=== PATIENT | female | born 1960 | race Caucasian/White ===

== ENCOUNTER 2020-10-13 14:54 | Emergency (ER) | payer OTHER, SELFPAY ==
[2020-10-13] VITALS (11 sets, daily range): BP systolic 129–182; BP diastolic 72–90; PULSE 80–98; RESP 14–24; TEMP 36.3; O2SAT 91–100
--- NOTE | ~2020-10-13 | XR_ITS ---
EXAMINATION: XR chest 2V DATE: 10/13/2020 15:28 INDICATION: Chest tightness TECHNIQUE: PA and lateral views of the chest are obtained. COMPARISON: 09/16/2018 FINDINGS: The lungs are free of acute opacities. There is no pleural effusion or pneumothorax. The ca rdiomediastinal silhouette is normal. There is moderate thoracic spondylosis. Calcified loose bodies are noted in right shoulder. IMPRESSION: 1. No acute cardiopulmonary abnormality. Reviewed, dictated and finalized at location A. [employer]
--- NOTE | 2020-10-13 14:55 | ECG_ITS ---
Measurements Intervals [place] Rate: 83 P: 6 NM: 131 QRS: 23 QRSD: 86 T: 30 QT: 373 QTc: 439 Interpretive Statements SINUS RHYTHM LOW QRS VOLTAGE IN PRECORDIAL LEADS BASELINE WANDER- I, II, V3 BORDERLINE ECG Electronically Signed On 10-13-2020 15:44:45 [employer] by Jl Lechuga D.O.
[2020-10-13] MEDS: ASPIRIN 81 MG CHEWABLE TABLET 324 MG PO (15:06)
--- NOTE | 2020-10-13 15:18 | ED.CHESTPAIN ---
HPI - Chest Pain General Chief Complaint: Chest Pain <Ramone Hester DO - Last Filed: 10/13/20 16:53> Stated Complaint: chest pain <Ramone Hester DO - Last Filed: 10/13/20 16:53> Time Seen by Provider: 10/13/20 15:03 <Ramone Hester DO - Last Filed: 10/13/20 16:53> Source: RN notes reviewed <Ramone Hester DO - Last Filed: 10/13/20 16:53> History of Present Illness HPI narrative: Patient presents to emergency department from home for midsternal chest pain. Patient states pain began approximately noon today pain is located midsternal chest. Patient states occasional radiation into the left neck and shoulder region states that pain feels like a pressure she denies any fevers or chills shortness of breath abdominal pain nausea vomiting or any other symptoms she denies any previous cardiac history states nothing makes the pain better or worse <Ramone Hester DO - Last Filed: 10/13/20 16:53> Related Data Home Medications: Home Medications Medication Instructions Recorded Confirmed baclofen 10 mg PO DAILY PRN 10/13/20 10/13/20 duloxetine 60 mg PO BID 10/13/20 empagliflozin [Jardiance] 25 mg PO DAILY 10/13/20 10/13/20 gabapentin 100 mg PO DAILY PRN 10/13/20 losartan 100 mg PO DAILY 10/13/20 metformin 500 mg PO BID 10/13/20 <Ramone Hester DO - Last Filed: 10/13/20 16:53> Allergies/Adverse Reactions: Allergies Allergy/AdvReac Type Severity Reaction Status Date / Time No Known Allergies Allergy Verified 10/13/20 14:55 <Ramone Hester DO - Last Filed: 10/13/20 16:53> Review of Systems Review of Systems: Narrative: Gen.: Denies fevers or chills ENT: Denies congestion Respiratory: Denies shortness of breath or cough CV: See HPI GI: Denies abdominal pain nausea, emesis or diarrhea Musculoskeletal: Denies back pain or muscle pain Neuro: Denies numbness, tingling, weakness or focal weakness Skin: Denies rash Except as documented, all other systems reviewed and negative <Ramone Hester DO - Last Filed: 10/13/20 16:53> [facility] Past Medical History Medical History: Medical History (Updated 10/13/20 @ 18:15 by Neo Patel MD) Diabetes mellitus Hypertension <Ramone Hester DO - Last Filed: 10/13/20 16:53> Social History Social History: Social History (Updated 10/13/20 @ 16:52 by Ramone Hester DO) Smoking status: Never smoker <Ramone Hester DO - Last Filed: 10/13/20 16:53> Exam Narrative: Exam Narrative: APPEARANCE: No acute distress, nontoxic, resting in bed EYES: EOMI HEENT: Normocephalic, atraumatic, OMM RESPIRATORY: No respiratory distress Clear to auscultation bilaterally with no rhonchi wheezing or rales. CARDIOVASCULAR: Regular rate and rhythm without murmurs rubs or gallops. ABDOMINAL: Soft, nontender, nondistended, no rebound or guarding MUSCULOSKELETAl: Moves all extremities. No clubbing, cyanosis or edema. NEURO: Awake and alert. Following commands, speech normal, no focal deficits SKIN:: Warm, dry. No rashes lesions or abrasions PSYCHIATRIC: Normal affect/mood, <Ramone Hester DO - Last Filed: 10/13/20 16:53> Course Course Emergency Course: Patient was signed out pending laboratory studies patient had a troponin that was negative. Patient has a heart score of 3 <Neo Patel MD - Last Filed: 10/13/20 18:16> Vital Signs Vital signs: Vital Signs Pulse Rate 89 10/13/20 15:00 Respiratory Rate 19 10/13/20 15:00 Temperature 36.3 C L 10/13/20 15:02 Pulse Rate 96 10/13/20 16:45 Respiratory Rate 24 H 10/13/20 16:45 Blood Pressure 129/76 10/13/20 16:45 Pulse Oximetry 91 10/13/20 16:45 <Ramone Hester DO - Last Filed: 10/13/20 16:53> Vital Signs Pulse Rate 89 10/13/20 15:00 Respiratory Rate 19 10/13/20 15:00 Temperature 36.3 C L 10/13/20 15:02 Pulse Rate 96 10/13/20 16:45 Respiratory Rate 24 H 0
[2020-10-13 15:47] LABS: Basophils Absolute Auto 0.1 K/mm3 (0.0-0.1); Basophils Percent Auto 0.7 % (0.2-1.2); Eosinophils Absolute Auto 0.1 K/mm3 (0-0.3); Eosinophils Percent Auto 1.4 % (0-4.4); Hemoglobin 15.5 g/dL (12.0-15.0); Immature Granulocyte Absolute 0.01 K/mm3 (0.00-0.031); Immature Granulocyte Percent A 0.1 % (0-0.5); Lymphocytes Absolute Auto 2.29 K/mm3 (0.9-3.2); Lymphocytes Percent Auto 28.6 % (18.3-44.2); Mean Corpuscular HGB Conc 34.4 g/dl (32-36); Mean Corpuscular Hemoglobin 29.4 pg (26-34); Mean Corpuscular Volume 85.2 fl (80-100); Mean Platelet Volume 8.9 fl (7.4-10.4); Monocytes Absolute Auto 0.7 K/mm3 (0.1-0.6); Monocytes Percent Auto 8.5 % (2.6-8.5); Neutrophils Absolute Auto 4.9 K/mm3 (1.3-6.7); Neutrophils Percent Auto 60.7 % (45.5-73.1); Platelet Count Result 332 k/mm3 (150-375); Red Blood Count 5.28 M/mm3 (4.2-5.4); Red Cell Distribution Width 12.8 % (11.5-14.5)
[2020-10-13 15:56] LABS: INR 0.9; Prothrombin Time 12.4 Seconds (11.1-14.7)
[2020-10-13 15:57] LABS: Partial Thromboplastin Time 24.7 SECONDS (22.3-36.8)
[2020-10-13 15:59] LABS: D Dimer 0.43 ug/mL (<0.48)
[2020-10-13 17:16] LABS: Alanine Aminotransferase 22 U/L (4-35); Albumin Level 4.4 g/dL (3.5-5.1); Alkaline Phosphatase 67 U/L (38-126); Anion Gap 8 mmol/L (8-16); Aspartate Amino Transferase 27 U/L (14-36); Bilirubin,Total 0.6 mg/dL (0.2-1.3); Blood Urea Nitrogen 20 mg/dL (7-17); Calcium 9.5 mg/dL (8.4-10.2); Carbon Dioxide 26 mmol/L (22-30); Chloride 105 mmol/L (98-107); Estimated CRCL calculation 104 ml/min; Estimated Glomerular Filt Rate > 60; Glucose 141 mg/dL (65-105); Lipase 95 U/L (23-300); Sodium 139 mmol/L (137-145)
[2020-10-13 17:22] LABS: Troponin I < 0.012 ng/mL (0.000-0.034)
[2020-10-13 18:40] LABS: Troponin I < 0.012 ng/mL (0.000-0.034)
== END 2020-10-13 18:42 | disposition home or self-care (01) ==
PROVIDERS: Emergency Provider Emergency Medicine; PCP Internal Medicine
DX: R07.89 Other chest pain (principal); E11.9 Type 2 diabetes mellitus without complications; I10 Essential (primary) hypertension; Z79.84 Long term (current) use of oral hypoglycemic drugs
CPT/HCPCS: 36415; 71046; 80048; 80076; 83690; 84484; 85025; 85380; 85610; 85730; 93005; 99284; A9270

== ENCOUNTER 2023-01-08 15:45 | Outpatient (RCR) | payer OTHER, SELFPAY ==
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
--- NOTE | 2022-12-21 08:59 | PTOPPROG ---
Assessment and note entered by Tariq Mei, PT Evaluation Information Assessment Status Progress Diagnosis TIA, CVA Subjective Information Patient reports she still feels like her back is weak and she is wanting to get riding on her tricycle that her mother got her and walking with her daughter to work on being more active. Feeling like she is having balance issues that have not improved Assessment PT Clinical Summary Echo is a 62 year old female coming into the clinic with a diagnosis of TIA and CVA. She was evaluated on 11/22/22 and attended 5 visits. She has met her walking and ankle strength goal, but new goals written for balance and a progression of her walking to help her be more active. Will continue to work with patient on balance and endurance if okay with doctor. Plan of Care Interventions Electrical Stimulation,Gait Training,Hot Pack/Cold Pack,Manual Therapy,Neuro Re-education,Patient/ Caregiver Education,Therapeutic Activities, Therapeutic Exercise,Ultrasound Other Interventions cupping, taping, IASTM PT Services Indicated Yes Treatment Frequency and 1-2x/wk for 4 weeks Duration These treatments will address the objective and functional deficits as defined above. The patient will be advanced safely and appropriately in order for the patient to progress towards his/her prior level of function. Additional exercises will be introduced and as well as a comprehensive home exercise program upon discharge, if needed, ?to ensure carryover of functional gains achieved in the clinic. This treatment plan has been reviewed and agreement upon by the patient.
--- NOTE | 2023-01-15 15:27 | PTOPDC ---
Assessment and note entered by Tariq Mei, PT Evaluation Information Assessment Status Discharge - Pt Not Present Diagnosis TIA, CVA Subjective Information Patient unable to make her last appointment, stating something came up. She reports she feels comfortable with her exercises at home and fine with being discharged. Assessment PT Clinical Summary Echo is a 62 year old female coming into the clinic with a diagnosis of TIA, CVA. She was evaluated on November 22, 2022 and attended 7 visits, at her first re-evaluation she met all of her original goals and new goals were met for this reassessment which were unable to be assessed. Discharged from skilled physical therapy per her request and improvement. Plan of Care PT Services Indicated No
== END 2023-01-15 16:19 | disposition home or self-care (01) ==
LOC: ANHPT 15:45
PROVIDERS: PCP Internal Medicine; Visit Provider Physician Assistant
DX: Z86.73 Personal history of transient ischemic attack (TIA), and cerebral infarction without residual deficits (principal)
CPT/HCPCS: 97110; 97112; 97116; 97161; 97530

== ENCOUNTER 2024-10-30 18:48 | Emergency (ER) | payer OTHER, SELFPAY ==
[2024-10-30 18:55] VITALS: BP 134/88; PULSE 97; RESP 20; TEMP 36.4; O2SAT 100
[2024-10-30 23:29] VITALS: BP 144/87; PULSE 96; RESP 18; TEMP 37.2; O2SAT 97
[2024-10-31] MEDS: KETOROLAC 30 MG/ML VIAL (*BKC) IM (02:04)
[2024-10-31] MEDS: CEPHALEXIN 500 MG CAPSULE PO (02:04)
--- NOTE | 2024-10-31 02:12 | ED.EXTPRO ---
HPI - Extremity Problem General Chief complaint: Extremity Problem,Nontraumatic Stated complaint: lump in L arm that is warm and hard Time Seen by Provider: 10/31/24 00:46 History of Present Illness HPI Narrative: Patient is a 64-year-old female who presents to the ER with 1 week history swelling above her left elbow. She reports she had her doctor evaluate it. He ordered an ultrasound and x-ray both of which were negative. Patient reports he did not put her on antibiotics. She reports the area has become increasingly warm, painful, and swollen. Patient reports she has medical history including heart attack, stroke, shingles, diabetes. She denies any recent fevers, decreased range of motion, chest pain, shortness of breath. Related Data Home Medications ?Medication ?Instructions ?Recorded ?Confirmed ?Last Taken ?Type baclofen 10 mg tablet 10 mg PO DAILY PRN pain 10/13/20 10/13/20 Unknown History duloxetine 60 mg capsule,delayed 60 mg PO BID 10/13/20 Unknown History release empagliflozin 25 mg tablet 25 mg PO DAILY 10/13/20 10/13/20 Unknown History (Jardiance) gabapentin 100 mg capsule 100 mg PO DAILY PRN Pain 10/13/20 Unknown History losartan 100 mg tablet 100 mg PO DAILY 10/13/20 Unknown History metformin 500 mg tablet,extended 500 mg PO BID 10/13/20 Unknown History release 24 hr Allergies Allergy/AdvReac Type Severity Reaction Status Date / Time No Known Allergies Allergy Verified 10/30/24 18:52 Review of Systems Review of Systems: All systems reviewed & are unremarkable except as noted in HPI and below PMFSH Past Medical History Medical History Diabetes mellitus Hypertension Social History Social History Smoking status: Never smoker Exam Narrative: GENERAL: Well appearing, well-nourished, non-toxic, in no acute distress. HEAD: Normocephalic, atraumatic. NECK: Supple. No adenopathy, no masses. RESPIRATORY: Airway patent, respirations nonlabored. Clear to auscultation bilaterally, no rales, rhonchi, wheezing. CARDIOVASCULAR: Regular rate and rhythm without murmurs, rubs, or gallops. Peripheral pulses 2+ and equal bilaterally. ABDOMINAL: Soft, nontender, nondistended, no hepatosplenomegaly. Normoactive BS. MUSCULOSKELETAL: Moves all extremities. Strength/ROM intact without gross deformities. SKIN: Warm, dry, normal color. No rashes. + posterior swelling above L elbow, palpable (approximately tennis ball size) and hot to touch NEURO: A&O X3. Speech clear. Cranial nerves intact. Steady gait with cane. No ataxic movements. PSYCHIATRIC: Appropriate mood and affect. Normal interaction. Course Vital Signs Vital signs: Vital Signs Temperature 36.4 C 10/30/24 18:55 Pulse Rate 97 10/30/24 18:55 Respiratory Rate 20 10/30/24 18:55 Blood Pressure 134/88 10/30/24 18:55 Pulse Oximetry 100 10/30/24 18:55 Oxygen Delivery Room Air 10/30/24 18:55 Temperature 37.2 C 10/30/24 23:29 Pulse Rate 96 10/30/24 23:29 Respiratory Rate 18 10/30/24 23:29 Blood Pressure 144/87 H 10/30/24 23:29 Pulse Oximetry 97 10/30/24 23:29 Oxygen Delivery Room Air 10/30/24 18:55 MDM - Extremity (Nontraumatic) MDM Narrative Medical decision making narrative: Patient is a 64-year-old female who presents to the ER with 1 week history swelling above her left elbow. She reports she had her doctor evaluate it. He ordered an ultrasound and x-ray both of which were negative. Patient reports he did not put her on antibiotics. She reports the area has become increasingly warm, painful, and swollen. Patient reports she has medical history including heart attack, stroke, shingles, diabetes. She denies any recent fevers, decreased range of motion, chest pain, shortness of breath. Labs Ordered: None necessary Imaging Ordered: None necessary (US and x-ray already performed outpatient) Medications Ordered: Toradol 30mg IM, Keflex 500mg PO Diagnosis: L arm cellulitis Patient Education/Shared MDM: Results shared with patient. She endorses improvement following medication administration. Patient strongly advised to follow-up with her PCP as soon as possible. She will be discharged home with prescription for Keflex. Strict return precautions provided. Patient verbalized understanding is in agreement with plan. Vital signs stable at time of discharge. All questions answered. Differential Diagnosis Differential diagnosis: Likely cellulitis, deep venous thrombosis of upper extremity and other (abscess) Discharge Plan Discharge Patient Language: Estonian Prescriptions: No Action baclofen 10 mg tablet 10 mg PO DAILY PRN (Reason: pain) gabapentin 100 mg capsule 100 mg PO DAILY PRN (Reason: Pain) losartan 100 mg tablet 100 mg PO DAILY metformin 500 mg tablet extended release 24 hr 500 mg PO BID duloxetine 60 mg capsule,delayed release(DR/EC) 60 mg PO BID Jardiance 25 mg tablet 25 mg PO DAILY Follow-up/Referrals: Lakeisha,Alexander Lynn MD [Primary Care Provider] -
== END 2024-10-31 02:30 | disposition home or self-care (01) ==
PROVIDERS: Emergency Provider Registered Nurse; PCP Internal Medicine
DX: L03.114 Cellulitis of left upper limb (principal); E11.9 Type 2 diabetes mellitus without complications; I10 Essential (primary) hypertension; Z79.84 Long term (current) use of oral hypoglycemic drugs; Z79.899 Other long term (current) drug therapy
CPT/HCPCS: 96372; 99283; A9270; J1885